=== PATIENT | male | born 1990 ===

== ENCOUNTER 2017-10-25 14:22 | Inpatient (IN) ==
[2017-10-25] MEDS ORDERED: VANCOMYCIN 1,500 MG in 0.9 % SODIUM CHLORIDE 500 ML IV ONE (15:14)
[2017-10-25] MEDS ORDERED: LACTATED RINGERS 1,000 ML IV ONE (15:18)
[2017-10-25] MEDS ORDERED: PIPERACILLIN SODIUM/TAZOBACTAM 3.375 GM in DEXTROSE 5% IN WATER 50 ML IV ONE (15:20)
[2017-10-25] MEDS ORDERED: HYDROmorphone 2 MG/ML VIAL IV PRN (15:52)
[2017-10-25 16:35] LABS: Basophils # (Auto) 0.2 K/mcL (0.0-0.3); Basophils % (Auto) 0.8 % (0.0-2.0); Eosinophils # (Auto) 0.1 K/mcL (0.0-0.7); Eosinophils % (Auto) 0.5 % (0.0-7.0); Granulocytes % (Auto) 86.9 % (38.0-78.0); Lymphocytes # (Auto) 1.1 K/mcL (1.5-4.8); Lymphocytes % (Auto) 5.8 % (15.5-49.0); Mean Cell Volume 92.4 fL (80.0-100.0); Mean Corpuscular HGB Conc 34.8 g/dL (31.0-36.0); Mean Corpuscular Hemoglobin 32.1 pg (26.0-34.0); Monocytes # (Auto) 1.2 K/mcL (0.1-0.9); Platelet Count 168 K/mcL (140-440); RBC 4.69 M/mcL (4.50-5.90); Red Cell Distribution Width 11.7 % (11.5-14.5)
[2017-10-25 16:37] LABS: ALT/SGPT 9 U/l (0-40); Albumin 4.1 gm/dL (3.2-5.2); Albumin/Globulin Ratio 1.4 (1.0-2.3); Alkaline Phosphatase 85 U/L (39-117); Blood Urea Nitrogen 8 mg/dl (6-20)
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
[2017-10-25] MEDS ORDERED: POLYETHYLENE GLYCOL 3350 17 GM PACKET PO PRN (18:28)
[2017-10-25] MEDS ORDERED: ACETAMINOPHEN 1,000 MG/100 ML BOTTLE IV PRN (18:28)
[2017-10-25] MEDS ORDERED: VANCOMYCIN PER PHARMACY IV SCH (18:28)
[2017-10-25] MEDS ORDERED: ONDANSETRON 4 MG/2 ML VIAL IV PRN (18:28)
[2017-10-25] MEDS ORDERED: ACETAMINOPHEN 325 MG TABLET PO PRN (18:28)
[2017-10-25] MEDS: 0.9 % SODIUM CHLORIDE 1,000 ML IV SCH (18:43)
[2017-10-25] MEDS: HYDROmorphone 2 MG/ML VIAL IV PRN (19:06)
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
[2017-10-25] MEDS ORDERED: HYDROcodone/APAP 5/325MG TABLET PO ONE (21:35)
[2017-10-25] MEDS: DOCUSATE SODIUM 100 MG CAPSULE PO SCH (21:38)
[2017-10-25] MEDS: VENLAFAXINE 75 MG TABLET PO SCH (21:39)
[2017-10-25] MEDS: SENNOSIDES/DOCUSATE SODIUM 1 TAB TABLET PO SCH (21:39)
[2017-10-25] MEDS: HEPARIN 5,000 UNIT/ML VIAL SQ SCH (21:40)
[2017-10-25] MEDS: PIPERACILLIN SODIUM/TAZOBACTAM 3.375 GM in DEXTROSE 5% IN WATER 50 ML IV SCH (21:40)
--- NOTE | 2017-10-25 21:46 | Consultation ---
DATE OF CONSULTATION: 10/25/2017 REQUESTING PHYSICIAN: Dr. Pompa. CONSULTING PHYSICIAN: Guzman Song MD REASON FOR CONSULTATION: Right lower extremity infection, possible abscess. HISTORY OF PRESENT ILLNES: This is a 27-year-old male who nearly 2 weeks ago had a laceration to his leg. He then apparently yesterday started developing a sudden onset of redness. He has progressively felt more ill and has increasing redness and pain. PAST MEDICAL HISTORY: Depression. MEDICATIONS: Effexor 75 mg b.i.d. ALLERGIES: HE HAS NO KNOWN DRUG ALLERGIES. SOCIAL HISTORY: He does smoke every day. REVIEW OF SYSTEMS: Positive for feeling febrile, although I do not think he has actually checked his temperature. Negative for chest pain or shortness of breath. Negative for seizure. PHYSICAL EXAMINATION: VITAL SIGNS: On admission, he is afebrile. However, he is tachycardic at 105, respirations 18, blood pressure 117/75, saturating 100%. GENERAL: He appears his stated age, in moderate discomfort. He does appear ill, and diaphoretic. EXTREMITIES: His right lower extremity on inspection does show a wound up at his proximal anterior lateral leg measuring several centimeters long and about 1.5 cm wide. There is a second, much smaller wound, several centimeters anterior to that. There is not obvious extensive purulence; however, there is some blackened-appearing type tissue, difficult to assess if this is dry necrosis or scabbing; however, there is extensive erythema extending from that wound all the way down to his ankle. There is a slight wound over the lateral ankle that appears to maybe have had at one point some drainage that is currently not draining now. He has exquisite tenderness to touch diffusely throughout the leg. I do not appreciate a large fluctuant area; however, certainly laterally over the ankle, there is an area of exquisite tenderness. He is able to flex and extend his ankle without excessive discomfort. IMAGING: Labs reviewed, shows a white count of 19.7. IMPRESSION: Right leg severe cellulitis with possibly an abscess underlying. PLAN: I recommend an MRI of the leg to evaluate for significant fluid pockets. He will already be admitted to hospitalist service and started on IV antibiotics. If there is significant fluid pocket, we will need to proceed with urgent incision and drainage. If there is not a large fluid collection, then we will recommend discontinuation of antibiotics. BJB:in Job ID: [id number] Doc ID: [id number] Guzman Song MD
[2017-10-25] MEDS: 0.9 % SODIUM CHLORIDE 10 ML SYRINGE IV SCH (22:29)
[2017-10-26] MEDS: PIPERACILLIN SODIUM/TAZOBACTAM 3.375 GM in DEXTROSE 5% IN WATER 50 ML IV SCH ×4 (02:56→21:34)
[2017-10-26] MEDS ORDERED: VANCOMYCIN 1,250 MG in 0.9 % SODIUM CHLORIDE 250 ML IV SCH (04:00)
[2017-10-26] MEDS: 0.9 % SODIUM CHLORIDE 10 ML SYRINGE IV SCH ×3 (04:06→20:28)
[2017-10-26 06:10] LABS: Mean Cell Volume 95.2 fL (80.0-100.0); Mean Corpuscular Hemoglobin 32.4 pg (26.0-34.0); Platelet Count 160 K/mcL (140-440); RBC 4.05 M/mcL (4.50-5.90); Red Cell Distribution Width 12.3 % (11.5-14.5)
[2017-10-26 06:27] LABS: ALT/SGPT 10 U/l (0-40); Albumin 3.6 gm/dL (3.2-5.2); Albumin/Globulin Ratio 1.4 (1.0-2.3); Alkaline Phosphatase 83 U/L (39-117); Bilirubin,Direct < 0.2 mg/dL (0.0-0.3); Blood Urea Nitrogen 6 mg/dl (6-20); Gamma Glutamyl Transpeptidase 9 U/L (8-61); Uric Acid 2.6 mg/dL (2.5-8.0)
[2017-10-26] MEDS: HEPARIN 5,000 UNIT/ML VIAL SQ SCH ×2 (08:15→20:18)
[2017-10-26] MEDS: VENLAFAXINE 75 MG TABLET PO SCH ×2 (08:15→20:19)
[2017-10-26] MEDS: DOCUSATE SODIUM 100 MG CAPSULE PO SCH ×2 (08:15→20:18)
[2017-10-26] MEDS: HYDROmorphone 2 MG/ML VIAL IV PRN ×3 (08:33→23:23)
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
--- NOTE | 2017-10-26 09:05 | Cat Scan Report ---
History: Leg infection with swelling and erythema, status post injury one week ago. TECHNIQUE: The right leg was imaged from the knee through the ankle following injection of intravenous nonionic contrast. Radiation exposure was limited using dose reduction technology. FINDINGS: No evidence of fracture or acute bony injury. The knee and ankle joint spaces are normal in width and alignment and there is no arthritis. There is an accessory ossicle posterior to the talus. There is thickening of subcutaneous tissues, extending to the deep fascia, from the mid calf to the ankle. There are small skin laceration anterior to the tibialis anterior muscle seen in the mid calf on image #137. The greatest swelling is along the anterior and lateral border. There is no evidence of an abscess. No foreign body or gas are present in the soft tissues. The muscles appear normal without evidence of inflammation. There is no osteomyelitis. No enhancing lesion is identified. There is normal enhancement of the arteries and veins. IMPRESSION: Edema or cellulitis in the mid and lower leg, without evidence of osteomyelitis, abscess or bone injury Interpreted and Authenticated by: Brendan Omalley 10/26/17
[2017-10-26 09:19] LABS: Lymphocytes % 14 % (15-49); Monocytes % (Manual) 11 % (1-12); Platelet Estimate NORMAL (NORMAL); RBC Morphology NORMAL (NORMAL); Segmented Neutrophils % 75 % (38-78)
[2017-10-26 09:30] LABS: Appearance,Urine CLEAR; Bacteria,Urine 0 /hpf (0); Bilirubin,Urine NEG (NEG); Color,Urine YELLOW; Glucose,Urine (UA) NEGATIVE (NEG); Leukocyte Esterase,Urine NEG /uL (NEG); Mucus,Urine FEW /hpf (0); Protein,Urine NEG (NEG); Specific Gravity,Urine 1.012 (1.000-1.035); Urine Blood NEG mg/dL (<0.03); Urine RBC 1 /hpf (0-1); Urine Squamous Epithelial Cell 0 /hpf (0-4); Urine WBC 0 /hpf (0-4); Urobilinogen,Urine NEG (NEG)
[2017-10-26 09:48] LABS: Amphetamine Screen,Urine SUSPECT POSITIVE (NONDETECTED); Benzodiazepines Screen,Urine NONE DETECTED (NONDETECTED); Cocaine Screen,Urine NONE DETECTED (NONDETECTED); Opiate Screen,Urine SUSPECT POSITIVE (NONDETECTED); Oxycodone, Urine Screen NONE DETECTED (NONDETECTED)
[2017-10-26] MEDS: VANCOMYCIN 1,250 MG in 0.9 % SODIUM CHLORIDE 500 ML IV SCH (12:32)
[2017-10-26] MEDS: SENNOSIDES/DOCUSATE SODIUM 1 TAB TABLET PO SCH (20:18)
[2017-10-26] MEDS: 0.9 % SODIUM CHLORIDE 1,000 ML IV SCH (20:19)
[2017-10-26] MEDS: HYDROcodone/APAP 5/325MG TABLET PO PRN (22:26)
[2017-10-27] MEDS: VANCOMYCIN 1,250 MG in 0.9 % SODIUM CHLORIDE 500 ML IV SCH ×3 (00:10→22:16)
[2017-10-27] MEDS: PIPERACILLIN SODIUM/TAZOBACTAM 3.375 GM in DEXTROSE 5% IN WATER 50 ML IV SCH ×4 (03:31→21:29)
[2017-10-27] MEDS: 0.9 % SODIUM CHLORIDE 10 ML SYRINGE IV SCH ×3 (04:40→21:34)
[2017-10-27 06:04] LABS: Mean Cell Volume 95.5 fL (80.0-100.0); Mean Corpuscular HGB Conc 34.1 g/dL (31.0-36.0); Mean Corpuscular Hemoglobin 32.5 pg (26.0-34.0); Platelet Count 154 K/mcL (140-440); RBC 3.86 M/mcL (4.50-5.90)
[2017-10-27 06:27] LABS: ALT/SGPT 11 U/l (0-40); Albumin 3.4 gm/dL (3.2-5.2); Albumin/Globulin Ratio 1.4 (1.0-2.3); Alkaline Phosphatase 77 U/L (39-117); Bilirubin,Direct < 0.2 mg/dL (0.0-0.3); Blood Urea Nitrogen 7 mg/dl (6-20); Gamma Glutamyl Transpeptidase 12 U/L (8-61); Uric Acid 2.2 mg/dL (2.5-8.0)
[2017-10-27] MEDS ORDERED: MUPIROCIN CRM 2% 15 GM TUBE TOPICAL SCH (08:30)
[2017-10-27 08:53] LABS: Band Neutrophils % 1 % (0-10); Eosinophils % (Manual) 2 % (0-7); Lymphocytes % 24 % (15-49); Monocytes % (Manual) 6 % (1-12); Platelet Estimate NORMAL (NORMAL); RBC Morphology NORMAL (NORMAL); Segmented Neutrophils % 67 % (38-78)
[2017-10-27] MEDS: DOCUSATE SODIUM 100 MG CAPSULE PO SCH ×2 (09:07→21:33)
[2017-10-27] MEDS: VENLAFAXINE 75 MG TABLET PO SCH ×2 (09:08→21:28)
[2017-10-27] MEDS: HEPARIN 5,000 UNIT/ML VIAL SQ SCH ×2 (09:08→21:33)
[2017-10-27] MEDS: HYDROcodone/APAP 5/325MG TABLET PO PRN ×2 (09:13→21:28)
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
[2017-10-27] MEDS ORDERED: LORazepam 0.5 MG TABLET PO ONE (11:37)
[2017-10-27] MEDS: 0.9 % SODIUM CHLORIDE 1,000 ML IV SCH (14:49)
--- NOTE | 2017-10-27 16:12 | General Surgery Progress Note ---
Subjective Narrative: Note initiated : 10/27/17 at 4:10 pm Service Date, if different from initiated Date: [] Patient: Raymon Reyez 27 y/o M admitted on 10/25/17 for Right Lower Extremity wound, swelling, redness.. Chief Complaint: [] Patient reassessed. Right leg wounds and ankle cellulitis site reviewed. Objective Temp Pulse Resp BP Pulse Ox 98.4 F 52 L 20 126/78 98 10/27/17 15:29 10/27/17 07:50 10/27/17 15:29 10/27/17 15:29 10/27/17 15:29 AVSS. Satisfactory progress with resolution of inflammatory changes. - Additional Data Intake & Output - Last 24 hours: Intake & Output 10/25/17 10/26/17 10/27/17 10/28/17 05:59 05:59 05:59 05:59 Intake Total 2220 / 2220 4100 / 4100 1675 / 1675 Output Total 1175 / 1175 950 / 950 Balance 2220 / 2220 2925 / 2925 725 / 725 Weight 158 lb 8 oz 153 lb 153 lb - Labs 10/27/17 04:56 10/27/17 04:56 Diabetes panel 10/27/17 Range/Units 04:56 Sodium 142 (133-145) mmol/L Potassium 3.9 (3.3-5.1) mmol/L Chloride 105 (96-108) mmol/L Carbon Dioxide 30 (22-30) mmol/L BUN 7 (6-20) mg/dl Creatinine 0.8 (0.7-1.2) mg/dl Glucose 99 (70-105) mg/dL Calcium 8.9 (8.6-10.4) mg/dl AST 12 (0-37) U/l ALT 11 (0-40) U/l Alkaline Phosphatase 77 (39-117) U/L Total Protein 5.9 (5.9-8.4) gm/dL Albumin 3.4 (3.2-5.2) gm/dL Triglycerides 102 (<150) mg/dl Calcium panel 10/27/17 Range/Units 04:56 Calcium 8.9 (8.6-10.4) mg/dl Phosphorus 3.9 (2.7-4.5) mg/dL Albumin 3.4 (3.2-5.2) gm/dL Pituitary panel 10/27/17 Range/Units 04:56 Sodium 142 (133-145) mmol/L Potassium 3.9 (3.3-5.1) mmol/L Chloride 105 (96-108) mmol/L Carbon Dioxide 30 (22-30) mmol/L BUN 7 (6-20) mg/dl Creatinine 0.8 (0.7-1.2) mg/dl Glucose 99 (70-105) mg/dL Calcium 8.9 (8.6-10.4) mg/dl Adrenal panel 10/27/17 Range/Units 04:56 Sodium 142 (133-145) mmol/L Potassium 3.9 (3.3-5.1) mmol/L Chloride 105 (96-108) mmol/L Carbon Dioxide 30 (22-30) mmol/L BUN 7 (6-20) mg/dl Creatinine 0.8 (0.7-1.2) mg/dl Glucose 99 (70-105) mg/dL Calcium 8.9 (8.6-10.4) mg/dl Total Bilirubin 0.3 (0.0-1.0) mg/dL AST 12 (0-37) U/l ALT 11 (0-40) U/l Alkaline Phosphatase 77 (39-117) U/L Total Protein 5.9 (5.9-8.4) gm/dL Albumin 3.4 (3.2-5.2) gm/dL Assessment and Plan (1) Sepsis affecting skin Problem details: Assessment:Resolving CSSSI. Right anterior upper leg. Left anterior knee area. Plan: Continue IV antitics for now. MIST treatments. Reassess for ongoing care. Anticipate d/c soon, on oral antibiotics and f/u at wound clinic in one week. Status: Acute Current Visit: Yes (2) Cellulitis of right anterior lower leg Problem details: Assessment:Cellulitis of right lower leg and ankle responding to IV antibiotcs and local care. Plan: Elevation when sitting or lying down. Status: Acute Current Visit: Yes - Time Spent With Patient Total time spent is greater than 50% in coordination of care (as documented) at patient's floor/unit and/or counseling patient: Assessment; Progressing well. Plan: Continue current treatment. Recheck tomorrow morning. less than 15 minutes
[2017-10-27] MEDS: SENNOSIDES/DOCUSATE SODIUM 1 TAB TABLET PO SCH (21:34)
[2017-10-28] MEDS: PIPERACILLIN SODIUM/TAZOBACTAM 3.375 GM in DEXTROSE 5% IN WATER 50 ML IV SCH ×3 (03:01→15:49)
[2017-10-28] MEDS: 0.9 % SODIUM CHLORIDE 10 ML SYRINGE IV SCH (05:15)
[2017-10-28 05:27] LABS: Mean Cell Volume 95.1 fL (80.0-100.0); Mean Corpuscular Hemoglobin 32.3 pg (26.0-34.0); Platelet Count 184 K/mcL (140-440); RBC 4.03 M/mcL (4.50-5.90); Red Cell Distribution Width 12.3 % (11.5-14.5)
[2017-10-28 05:55] LABS: ALT/SGPT 10 U/l (0-40); Albumin 3.1 gm/dL (3.2-5.2); Albumin/Globulin Ratio 1.2 (1.0-2.3); Alkaline Phosphatase 64 U/L (39-117); Bilirubin,Direct < 0.2 mg/dL (0.0-0.3); Blood Urea Nitrogen 5 mg/dl (6-20); Gamma Glutamyl Transpeptidase 11 U/L (8-61); Uric Acid 2.2 mg/dL (2.5-8.0)
[2017-10-28 08:21] LABS: Band Neutrophils % 1 % (0-10); Eosinophils % (Manual) 5 % (0-7); Lymphocytes % 39 % (15-49); Monocytes % (Manual) 9 % (1-12); Platelet Estimate NORMAL (NORMAL); RBC Morphology NORMAL (NORMAL); Segmented Neutrophils % 45 % (38-78)
[2017-10-28] MEDS: VANCOMYCIN 1,250 MG in 0.9 % SODIUM CHLORIDE 500 ML IV SCH (09:24)
[2017-10-28] MEDS: HEPARIN 5,000 UNIT/ML VIAL SQ SCH (09:24)
[2017-10-28] MEDS: VENLAFAXINE 75 MG TABLET PO SCH (09:24)
[2017-10-28] MEDS: DOCUSATE SODIUM 100 MG CAPSULE PO SCH (09:24)
[2017-10-28] MEDS: HYDROcodone/APAP 5/325MG TABLET PO PRN (09:25)
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
--- NOTE | 2017-10-28 11:56 | General Surgery Progress Note ---
Subjective Narrative: Note initiated : 10/28/17 at 11:52 am Service Date, if different from initiated Date: [] Patient: Raymon Reyez 27 y/o M admitted on 10/25/17 for Right Lower Extremity Wound, Swelling, Redness. Chief Complaint: [] Patient seen on round with RN. Wounds examined. Patient had an uneventful night . Feeling better. Keen to go home and follow [facility]. Objective Temp Pulse Resp BP Pulse Ox 97.4 F 76 12 119/79 98 10/28/17 08:00 10/28/17 08:00 10/28/17 08:00 10/28/17 08:00 10/28/17 08:00 AVSS. RODNEY. No acute changes. L/E Significant improvement and resolution of cellulitis Right lower leg and ankle area. Right upper leg skin wounds are dry, clean. Periwound is normal. Granulating base. Labs: Leucocytosis resolved. Radiology and Microbiology reports reviewed. - Additional Data Intake & Output - Last 24 hours: Intake & Output 10/26/17 10/27/17 10/28/17 10/29/17 05:59 05:59 05:59 05:59 Intake Total 2220 / 2220 4100 / 4100 4343 / 4343 Output Total 1175 / 1175 1525 / 1525 Balance 2220 / 2220 2925 / 2925 2818 / 2818 Weight 158 lb 8 oz 153 lb 152 lb 8 oz - Labs 10/28/17 04:15 10/28/17 04:15 Diabetes panel 10/28/17 Range/Units 04:15 Sodium 142 (133-145) mmol/L Potassium 3.4 (3.3-5.1) mmol/L Chloride 104 (96-108) mmol/L Carbon Dioxide 27 (22-30) mmol/L BUN 5 L (6-20) mg/dl Creatinine 0.7 (0.7-1.2) mg/dl Glucose 95 (70-105) mg/dL Calcium 8.8 (8.6-10.4) mg/dl AST 12 (0-37) U/l ALT 10 (0-40) U/l Alkaline Phosphatase 64 (39-117) U/L Total Protein 5.6 L (5.9-8.4) gm/dL Albumin 3.1 L (3.2-5.2) gm/dL Triglycerides 97 (<150) mg/dl Calcium panel 10/28/17 Range/Units 04:15 Calcium 8.8 (8.6-10.4) mg/dl Phosphorus 4.5 (2.7-4.5) mg/dL Albumin 3.1 L (3.2-5.2) gm/dL Pituitary panel 10/28/17 Range/Units 04:15 Sodium 142 (133-145) mmol/L Potassium 3.4 (3.3-5.1) mmol/L Chloride 104 (96-108) mmol/L Carbon Dioxide 27 (22-30) mmol/L BUN 5 L (6-20) mg/dl Creatinine 0.7 (0.7-1.2) mg/dl Glucose 95 (70-105) mg/dL Calcium 8.8 (8.6-10.4) mg/dl Adrenal panel 10/28/17 Range/Units 04:15 Sodium 142 (133-145) mmol/L Potassium 3.4 (3.3-5.1) mmol/L Chloride 104 (96-108) mmol/L Carbon Dioxide 27 (22-30) mmol/L BUN 5 L (6-20) mg/dl Creatinine 0.7 (0.7-1.2) mg/dl Glucose 95 (70-105) mg/dL Calcium 8.8 (8.6-10.4) mg/dl Total Bilirubin 0.2 (0.0-1.0) mg/dL AST 12 (0-37) U/l ALT 10 (0-40) U/l Alkaline Phosphatase 64 (39-117) U/L Total Protein 5.6 L (5.9-8.4) gm/dL Albumin 3.1 L (3.2-5.2) gm/dL Assessment and Plan (1) Sepsis affecting skin Problem details: Assessment:Resolving CSSSI. Right anterior upper leg. Left anterior knee area. Plan: Continue IV antitics for now. MIST treatments. Reassess for ongoing care. Anticipate d/c soon, on oral antibiotics and f/u at wound clinic in one week. Status: Acute Current Visit: Yes (2) Cellulitis of right anterior lower leg Problem details: Assessment:Cellulitis of right lower leg and ankle responding to IV antibiotcs and local care. Plan: Elevation when sitting or lying down. Status: Acute Current Visit: Yes - Time Spent With Patient Total time spent is greater than 50% in coordination of care (as documented) at patient's floor/unit and/or counseling patient: Assessment: Satisfactory progress. OK to discharge on PO antibiotics ( Clindamycin and Doxycycline and Topical Mupirocin as explained ) Plan; Spoke with Dr. Alas. Hospitalist Physician. Patient to do his own out patient wound care. Clean with NS and apply Mupirocin and gauze dressings. Prescription to patient given by Dr. Alas. f/[facility] one WEEK. 15 - 24 minutes
== END 2017-10-28 13:45 | disposition home or self-care (01) | DRG 872 ==
LOC: ED 14:22 → MEDSUR 18:20
PROVIDERS: ADMIT Internal Medicine; ATTEND Internal Medicine